=== PATIENT | male | born 1970 | race African-American/Black ===

== ENCOUNTER 2016-07-10 10:29 | Emergency (ER) | payer OTHER ==
[~2016-07-10] VITALS: Ht 180.3 cm; Wt 123.0 kg
[~2016-07-10 10:29] MED LIST: ALLO300T2 PO; NAPR500 PO; OMEP20TA PO; PRED10PA PO
[2016-07-10 10:31] VITALS: BP 160/97; PULSE 88; RESP 20; TEMP 98; O2SAT 96
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
[2016-07-10] MEDS ORDERED: CYCLOBENZAPRINE HCL 10 MG TAB PO ONE (13:45)
[2016-07-10] MEDS ORDERED: IBUPROFEN 800 MG TAB PO ONE (13:45)
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
[2016-07-10] MEDS ORDERED: IBUP800T23 PO (15:01)
[2016-07-10] MEDS ORDERED: CYCL1TAB29 PO (15:01)
== END 2016-07-10 17:12 | disposition home or self-care (01) ==
LOC: NEPB 10:29
DX: S96.911A Strain of unspecified muscle and tendon at ankle and foot level, right foot, initial encounter (principal); S39.012A Strain of muscle, fascia and tendon of lower back, initial encounter; M79.641 Pain in right hand; M62.830 Muscle spasm of back; V28.0XXA Motorcycle driver injured in noncollision transport accident in nontraffic accident, initial encounter; Y93.I9 Activity, other involving external motion; Y92.410 Unspecified street and highway as the place of occurrence of the external cause
CPT/HCPCS: 73130; 73630; 99283